=== PATIENT | female | born 1940 | race Caucasian/White ===

== ENCOUNTER → 2021-04-05 10:17 | Outpatient (CLI) | payer MEDICARE, OTHER, SELFPAY ==
[2021-04-05 13:02] LABS: COVID19 -Nasal RAPID Negative (Negative)
== END ==
PROVIDERS: PCP Family Medicine; Visit Provider Nurse Practitioner Family
DX: Z01.812 Encounter for preprocedural laboratory examination (principal); Z20.822 Contact with and (suspected) exposure to COVID-19
CPT/HCPCS: 87635; C9803

== ENCOUNTER 2022-09-11 08:12 | Observation (INO) | payer MEDICARE, OTHER, SELFPAY ==
[2022-09-11] VITALS (47 sets, daily range): BP systolic 166–237; BP diastolic 50–131; PULSE 54–81; RESP 13–41; TEMP 36.5–37.1; O2SAT 92–99; BMI 31.7
--- NOTE | 2022-09-11 08:30 | DI.RAD.S_ITS ---
PROCEDURE: XR CHEST 1V INDICATIONS: chest pain TECHNIQUE: One view of the chest was acquired. COMPARISON: [facility], , CHEST 1 VIEW, 03/07/2016, 10:41. FINDINGS: Surgical changes and devices: Left chest wall pacemaker leads are seen projecting in the region of right atrium and right ventricle. Lungs and pleura: Lungs are clear. No pleural effusions or pneumothorax. Mediastinum: Mediastinal contours appear normal. Heart size is enlarged. Bones and chest wall: No suspicious bony lesions. Overlying soft tissues appear unremarkable. IMPRESSION: No acute cardiopulmonary pathology. Dictated by: Jeevan Christopher M.D. on 09/11/2022 at 8:46 Approved by: Jeevan Christopher M.D. on 09/11/2022 at 8:46
[2022-09-11 08:39] LABS: INR 1.3 (0.9-1.3); Prothrombin Time 14.8 SECONDS (10.1-12.7)
[2022-09-11 08:42] LABS: PTT Partial Thromboplastin Tim 35 SECONDS (26-36)
[2022-09-11 08:43] LABS: Add Manual Diff / Slide Review NO; Basophils Absolute Auto 100 /uL (0-100); Basophils Percent Auto 1.1 % (0-2); Eosinophils Absolute Auto 200 /uL (0-450); Eosinophils Percent Auto 2.4 % (2-4); Hematocrit 42.9 % (36-46); Lymphocytes Absolute Auto 1100 /uL (1100-4500); Lymphocytes Percent Auto 13.9 % (25-40); Mean Corpuscular HGB Conc 32.8 % (30-36); Mean Corpuscular Hemoglobin 29.1 PG (26-34); Mean Corpuscular Volume 88.8 fL (80-100); Monocytes Absolute Auto 1100 /uL (0-900); Monocytes Percent Auto 14.3 % (3-14); Neutrophils Absolute Auto 5300 /uL (1500-7000); Neutrophils Percent Auto 68.3 % (50-75); Platelet Count 160 X10^3/uL (150-400); Red Blood Cell Count 4.83 X10^6/uL (4.0-5.2); Red Cell Distribution Width 14.3 % (11.6-14.8); White Blood Cell Count 7.8 X10^3/uL (4.5-11.0)
[2022-09-11 08:44] LABS: Alanine Aminotransferase 47 IU/L (<35); Albumin 3.9 g/dL (3.5-5.0); Albumin Globulin Ratio 1.3 (1.0-2.8); Alkaline Phosphatase 93 U/L (38-126); Aspartate Aminotransferase 70 IU/L (14-36); BUN Creatinine Ratio 23.8 (6-22); Bilirubin Total 1.6 mg/dL (0.2-1.3); Blood Urea Nitrogen 15 mg/dL (7-17); Calcium 9.3 mg/dL (8.4-10.2); Carbon Dioxide 26 mmol/L (22-32); Chloride 103 mmol/L (98-107); Creatine Kinase 35 U/L (30-135); Estimated Glomerular Filt Rate > 60 mL/min (>60); Globulin 3.1 g/dL (1.7-4.1); Glucose 146 mg/dL (80-110); HEMOLYSIS < 15 (0-50); Lipase 54 U/L (23-300); Magnesium 1.9 mg/dL (1.6-2.3); Potassium 3.7 mmol/L (3.4-5.1); Sodium 138 mmol/L (137-145)
--- NOTE | 2022-09-11 08:53 | ED_ITS ---
HPI - Chest Pain General Chief Complaint: Chest Pain Stated Complaint: Chest pain, paced Time Seen by Provider: 09/11/22 08:38 Source: patient, RN notes reviewed and old records reviewed Mode of arrival: EMS Limitations: no limitations History of Present Illness HPI narrative: This is an 82-year-old female on Eliquis with history of coronary artery disease, cardiac stents and pacemaker placed in 2015, hyperparathyroidism, hypertension, hypothyroidism, prior kidney stones and pseudogout. Patient presents with complaint of 2 episodes the 1st 1 being on Monday and then again today on Monday of left-sided abdominal pain that then radiated up to her chest, down in her belly and towards her back. She states the episode on Monday was not as intense but she felt lightheaded she did have any syncope it subside a fter about 20 minutes and belching seemed to be helpful. Patient states she did not feel any more short of breath with either episode. She states this morning when she got up she had the same area left-sided belly that radiates towards her back up to her chest farther down into her belly. It does not go down her leg. Patient does not think it goes in her arm but she states she really hurt ever ywhere it was more intense today it lasted about an hour. She was nauseated but no vomiting she states felt dizzy and sweaty. She states she is been constipated but had a loose stool on Monday when she would an episode of loose stool today. No black or blood. No dysuria urgency or frequency. No fevers or chills. She states no new changes with breathing or increased shortness of breath. No cold cough or congestion. She is on Synthroid, losartan, amlodipine, Eliquis, estradiol and ofloxacin eyedrops. She notes she is had issues and had cardiac stents placed in 2015 and 6 weeks later pacemaker placed. Patient states at that time her pain was in her back. She has had kidney stones she is got history hyperparathyroidism and had parathyroid removal in 2020 but still has some issues, pseudogout. She is also had cholecystectomy, hysterectomy and pelvic floor surgery. She states she had a CT of her chest abdomen pelvis and was told that there was a button hole hernia by her primary care. Patient follows with Dr. Combs nurse or biometrics head, Dr. Quispe for Urology, Dr. Walden at [facility] for cardiology and Dr. Al [facility] for primary care. She is allergic to beta-blockers, sulfa, hydralazine and triamcinolone. Related Data Home Medications Medication Instructions Recorded Confirmed amlodipine 2.5 mg tablet 2.5 mg PO DAILY 06/16/21 09/11/22 estradiol 1 dose vaginal 4XW 06/16/21 09/11/22 levothyroxine 50 mcg capsule 50 mcg PO DAILY 06/16/21 09/11/22 losartan 100 mg tablet 100 mg PO DAILY 06/16/21 09/11/22 apixaban 2.5 mg tablet (Eliquis) 2.5 mg PO BID 09/11/22 09/11/22 Allergies Allergy/AdvReac Type Severity Reaction Status Date / Time sulfamethoxazole Allergy Mild Verified 11/11/21 07:59 [From ] triamcinolone [TRIAMCINOLONE] Allergy Mild Verified 11/11/21 07:59 trimethoprim [From SEPTRA] Allergy Mild Verified 11/11/21 07:59 Beta-Blockers AdvReac Severe Difficulty Verified 11/11/21 07:59 (Beta-Adrenergic Bloc Breathing hydralazine AdvReac Headache Verified 11/11/21 07:59 Review of Systems Review of Systems ROS Unobtainable: All systems reviewed & are unremarkable except as noted in HPI and below Patient History Medical History History of asthma History of heart attack History of hypothyroidism History of nephrolithiasis History of UTI Hx of cardiac pacemaker Hx of coronary artery disease Hx of essential hypertension Hx of gastroesophageal reflux (GERD) Hx of ovarian cancer Postmenopausal atrophic vaginitis Surgical History History of coronary artery stent placement History of liver biopsy Hx of abdominal hysterectomy Hx of appendectomy Hx of section Hx of cholecystectomy Hx of pelvic surgery Hx of tubal ligation Family History Mother CVA (cerebral vascular accident) FH: heart attack Migraine Social History household members: none Smoking Status: Former smoker Tobacco: How many years used: 9 alcohol intake: never caffeine: No Type(s) of exercise: other frequency: 1-2 times per week Smoking Status: Former smoker Exam Narrative Exam Narrative: GENERAL: Alert and oriented x three, female in mild distress. HEENT: Head normocephalic, atraumatic, EOMI, pupils reactive, face symmetric, moist mucous membranes NECK: Supple, full range of motion CARDIOVASCULAR: Regular rate and rhythm without murmurs, rubs or gallops. No JVD. No edema. RESPIRATORY: Breath sounds equal bilaterally, no wheezes rales or rhonchi. No tachypnea or accessory muscle use. ABDOMEN: Soft, patient has mild generalized tenderness, patient is quite tender in the left upper quadrant. Normoactive bowel sounds all 4 quadrants. No guard ing or rebound, rigidity, no mass. : No CVA tenderness EXTREMITIES: Normal range of motion, no clubbing or edema. Neurovascularly intact NEUROLOGICAL: Cranial nerves II through XII grossly intact. Moving all extremities SKIN: Warm, dry, no petechiae, no rashes or lesions. Initial Vital Signs Initial Vital Signs: Vital Signs Pulse Rate 72 09/11/22 08:22 Respiratory Rate 24 09/11/22 08:22 Pulse Oximetry 98 09/11/22 08:22 Course Orders Ordered: ED Orders 09/11/22 10:42 Trop I [Troponin I] Stat 09/11/22 10:47 EKG-12 Lead Routine Acetaminophen (Acetaminophen 325 Mg Tablet) 650 mg PO Q6H PRN PRN Reason: Fever/Mild Pain (1-3) Amlodipine Besylate (Amlodipine 5 Mg Tablet) 5 mg PO DAILY BREANNA Apixaban (Apixaban 5 Mg Tablet) 2.5 mg PO BID BREANNA Levothyroxine Sodium (Levothyroxine 50 Mcg Tablet) 50 mcg PO DAILY@0600 BREANNA Losartan Potassium (Losartan 50 Mg Tablet) 100 mg PO DAILY BREANNA Naloxone HCl (Naloxone 0.4 Mg/Ml Vial) 0.2 mg IV Q2MIN PRN PRN Reason: Opiate Reversal Ondansetron HCl (Ondansetron 4 Mg/2 Ml Inj) 4 mg IV Q8HR PRN PRN Reason: Nausea And Vomiting Discontinued Medications Amlodipine Besylate (Amlodipine 5 Mg Tablet) 2.5 mg PO NOW ONE Stop: 09/11/22 17:51 Last Admin: 09/11/22 18:25 Dose: 2.5 mg Documented By: BV Enoxaparin Sodium (Enoxaparin 40 Mg/0.4 Ml Syringe) 40 mg SUBCUT DAILY BREANNA Sodium Chloride (Normal Saline 0.9%) 1,000 mls @ 150 mls/hr IV CONT BREANNA Last Admin: 09/11/22 10:03 Dose: 150 mls/hr Documented By: NR Nitroglycerin (Nitroglycerin 0.4 Mg Sl Tab) 0.4 mg SL [id number] PRN PRN Reason: Chest Pain Last Admin: 09/11/22 12:37 Dose: 0.4 mg Documented By: Admin: 09/11/22 12:13 Dose: 0.4 mg Documented By: AT Nitroglycerin (Nitroglycerin Oint 1 Inch/Gm Oint...G.) 1 inch TOP NOW ONE Stop: 09/11/22 13:04 Last Admin: 09/11/22 13:44 Dose: 1 inch Documented By: NR Ondansetron HCl (Ondansetron 4 Mg/2 Ml Inj) 4 mg IV NOW ONE Stop: 09/11/22 09:13 Last Admin: 09/11/22 10:12 Dose: 4 mg Documented By: NR Pantoprazole Sodium (Pantoprazole 40 Mg Vial) 80 mg IV NOW ONE Stop: 09/11/22 09:15 Last Admin: 09/11/22 10:03 Dose: 80 mg Documented By: NR Vital Signs Vital signs: Vital Signs - 8 hr 09/11/22 11:00 09/11/22 11:01 09/11/22 11:01 Pulse Rate 60 61 Respiratory Rate 19 30 H Blood Pressure 209/79 H Pulse Oximetry 97 97 09/11/22 11:30 09/11/22 11:31 09/11/22 11:31 Pulse Rate 59 L 63 Respiratory Rate 22 31 H Blood Pressure 208/82 H Pulse Oximetry 97 96 09/11/22 12:13 09/11/22 11:41 09/11/22 11:41 Pulse Rate 65 74 Respiratory Rate 20 Blood Pressure 192/78 H 237/97 H Pulse Oximetry 96 09/11/22 12:00 09/11/22 12:01 09/11/22 12:01 Pulse Rate 54 L 63 Respiratory Rate 22 16 Blood Pressure 211/88 H Pulse Oximetry 98 98 09/11/22 12:12 09/11/22 12:12 02/12/23 12:19 Pulse Rate 62 Respiratory Rate 20 Blood Pressure 192/78 H 173/73 H Pulse Oximetry 98 09/11/22 12:19 09/11/22 12:37 09/11/22 13:44 Pulse Rate 64 65 54 L Respiratory Rate 17 Blood Pressure 225/85 H 231/91 H Pulse Oximetry 96 09/11/22 12:30 09/11/22 12:31 09/11/22 12:31 Pulse Rate 54 L 63 Respiratory Rate 31 H 22 Blood Pressure 180/74 H Pulse Oximetry 97 96 09/11/22 12:35 09/11/22 12:35 09/11/22 12:41 Pulse Rate 63 Respiratory Rate 17 Blood Pressure 225/85 H 194/78 H Pulse Oximetry 96 09/11/22 12:41 09/11/22 12:45 09/11/22 12:45 Pulse Rate 67 66 Respiratory Rate 25 H 28 H Blood Pressure 201/81 H Pulse Oximetry 96 96 09/11/22 12:50 09/11/22 12:50 09/11/22 12:55 Pulse Rate 60 Respiratory Rate 28 H Blood Pressure 180/76 H 174/70 H Pulse Oximetry 96 09/11/22 12:55 09/11/22 13:00 09/11/22 13:01 Pulse Rate 58 L 55 L Respiratory Rate 28 H 24 Blood Pressure 193/74 H Pulse Oximetry 96 97 09/11/22 13:01 09/11/22 13:05 09/11/22 13:05 Pulse Rate 57 L 54 L Respiratory Rate 22 16 Blood Pressure 167/72 H Pulse Oximetry 97 96 09/11/22 13:30 09/11/22 13:31 09/11/22 13:31 Pulse Rate 67 69 Respiratory Rate 34 H 36 H Blood Pressure 231/91 H Pulse Oximetry 97 97 09/11/22 14:00 09/11/22 14:00 09/11/22 14:30 Pulse Rate 55 L 57 L Respiratory Rate 17 13 Blood Pressure 184/131 H Pulse Oximetry 97 96 09/11/22 14:31 09/11/22 14:31 09/11/22 15:00 Pulse Rate 63 70 Respiratory Rate 17 15 Blood Pressure 166/72 H Pulse Oximetry 96 96 09/11/22 15:01 09/11/22 15:01 Pulse Rate 72 Respiratory Rate 18 Blood Pressure 218/84 H Pulse Oximetry 96 MDM - Chest Pain Lab Data 09/11/22 08:24 09/11/22 08:24 Labs: Lab Results 09/11/22 09/11/22 09/11/22 Range/Units 08:15 08:24 08:24 WBC 7.8 (4.5-11.0) X10^3/uL RBC 4.83 (4.0-5.2) X10^6/uL Hgb 14.0 (12.0-16.0) g/dL Hct 42.9 (36-46) % MCV 88.8 (80-100) fL MCH 29.1 (26-34) PG MCHC 32.8 (30-36) % RDW 14.3 (11.6-14.8) % Plt Count 160 (150-400) X10^3/uL Neut % (Auto) 68.3 (50-75) % Lymph % (Auto) 13.9 L (25-40) % [place] % (Auto) 14.3 H (3-14) % Eos % (Auto) 2.4 (2-4) % Baso % (Auto) 1.1 (0-2) % Neut # (Auto) 5300 (6144-0502) /uL Lymph # (Auto) 1100 (9272-0152) /uL [place] # (Auto) 1100 H (0-900) /uL Eos # (Auto) 200 (0-450) /uL Baso # (Auto) 100 (0-100) /uL PT 14.8 H (10.1-12.7) SECONDS INR 1.3 (0.9-1.3) APTT 35 (26-36) SECONDS Sodium (137-145) mmol/L Potassium (3.4-5.1) mmol/L Chloride (98-107) mmol/L Carbon Dioxide (22-32) mmol/L BUN (7-17) mg/dL Creatinine (0.52-1.04) mg/dL Estimated GFR (>60) mL/min BUN/Creatinine Ratio (6-22) Glucose (80-110) mg/dL Lactate (0.7-2.1) mmol/L Calcium (8.4-10.2) mg/dL Magnesium (1.6-2.3) mg/dL Total Bilirubin (0.2-1.3) mg/dL AST (14-36) IU/L ALT (<35) IU/L Alkaline Phosphatase (38-126) U/L Total Creatine Kinase (30-135) U/L CK-MB (CK-2) CK-MB (CK-2) Rel Index Troponin I (0.01-0.034) ng/mL Total Protein (6.3-8.2) g/dL Albumin (3.5-5.0) g/dL Globulin (1.7-4.1) g/dL Albumin/Globulin Ratio (1.0-2.8) Lipase (23-300) U/L Urine RBC None seen (0-5/HPF) Urine WBC 1-5/hpf (0-5/HPF) Ur Squamous Epith Cells 0-1 /hpf (0-5/HPF) Urine Bacteria None seen (None) Ur Culture Indicated? Cult not indicated 09/11/22 09/11/22 09/11/22 Range/Units 08:24 08:24 10:42 WBC (4.5-11.0) X10^3/uL RBC (4.0-5.2) X10^6/uL Hgb (12.0-16.0) g/dL Hct (36-46) % MCV (80-100) fL MCH (26-34) PG MCHC (30-36) % RDW (11.6-14.8) % Plt Count (150-400) X10^3/uL Neut % (Auto) (50-75) % Lymph % (Auto) (25-40) % [place] % (Auto) (3-14) % Eos % (Auto) (2-4) % Baso % (Auto) (0-2) % Neut # (Auto) (4387-5421) /uL Lymph # (Auto) (9184-6577) /uL [place] # (Auto) (0-900) /uL Eos # (Auto) (0-450) /uL Baso # (Auto) (0-100) /uL PT (10.1-12.7) SECONDS INR (0.9-1.3) APTT (26-36) SECONDS Sodium 138 (137-145) mmol/L Potassium 3.7 (3.4-5.1) mmol/L Chloride 103 (98-107) mmol/L Carbon Dioxide 26 (22-32) mmol/L BUN 15 (7-17) mg/dL Creatinine 0.63 (0.52-1.04) mg/dL Estimated GFR > 60 (>60) mL/min BUN/Creatinine Ratio 23.8 H (6-22) Glucose 146 H (80-110) mg/dL Lactate 1.1 (0.7-2.1) mmol/L Calcium 9.3 (8.4-10.2) mg/dL Magnesium 1.9 (1.6-2.3) mg/dL Total Bilirubin 1.6 H (0.2-1.3) mg/dL AST 70 H (14-36) IU/L ALT 47 H (<35) IU/L Alkaline Phosphatase 93 (38-126) U/L Total Creatine Kinase 35 (30-135) U/L CK-MB (CK-2) TNP CK-MB (CK-2) Rel Index TNP Troponin I < 0.012 < 0.012 (0.01-0.034) ng/mL Total Protein 7.0 (6.3-8.2) g/dL Albumin 3.9 (3.5-5.0) g/dL Globulin 3.1 (1.7-4.1) g/dL Albumin/Globulin Ratio 1.3 (1.0-2.8) Lipase 54 (23-300) U/L Urine RBC (0-5/HPF) Urine WBC (0-5/HPF) Ur Squamous Epith Cells (0-5/HPF) Urine Bacteria (None) Ur Culture Indicated? Urine Dip Bedside Urine Glucose Negative Bedside Urine Bilirubin - Negative Bedside Urine Ketone +++ 80 Urine Specific Ramsay 1.030 Bedside Urine Occult Blood - Negative Bedside Urine pH 6.0 Bedside Urine Protein + 30 Bedside Urine Urobilinogen +/- 1mg Bedside Urine Nitrite - Negative Bedside Urine Leukocytes - Negative Esterase Imaging Data CT angio chest/abd/pelvis: Radiologist's Impression: [address] [address] [address] Scan Report Signed Patient: Yoselin Sanders MR#: [id number] : 1940 Acct:[id number] Age/Sex: 82 / F Date of Service: 09/11/22 Loc: ED Accession Number: [id number] ?? Procedure: CT angio chest abdomen pelvis Ordering Provider: Tanya Osullivan D.O. PROCEDURE:? CT ANGIO CHEST ABDOMEN PELVIS ? INDICATIONS:? left sided abd pain, radiates to chest and down ? TECHNIQUE:? Precontrast 5 mm thick sections acquired from the lung apices to the iliac crests.? After the administration of intravenous contrast, 2.5 mm thick sections again acquired from the lung apices to the iliac crests.? Maximum intensity projection (MIP) oblique sag ittal and coronal reformats were then acquired.? For radiation dose reduction, the following was used:? automated exposure control.? ? COMPARISON:? [facility], CT, CT ANGIO CHEST ABDOMEN PELVIS, 05/22/2022, 8:24. ? FINDINGS:? Image quality:? Excellent.? ? AORTA:? Thoracic and abdominal aorta are normal in size and show normal contrast enhancement.? No aortic aneurysm or dissection.? [id number] atherosclerotic disease is seen in descending thoracic aorta and abdominal aorta. ? CHEST:? Lungs and pleura:? No acute airspace opacities.? Dependent atelectasis are seen at posterior aspect of bilateral lung bases.? No pleural effusions or pneumothorax.? Central and peripheral airways are patent and normal in caliber.? ? Mediastinum:? Heart size is enlarged.? No pericardial effusion.? Pacemaker leads are seen in right atrium and right ventricle.? Moderate atherosclerotic disease throughout coronary vessels are seen.? No mediastinal or hilar adenopathy by size criteria.? Central pulmonary arteries are normal in size.? Esophagus is normal in caliber.? Moderate-sized hiatal hernias.? ? Bones and chest wall:? Left chest wall pacemaker is seen.? No axillary adenopathy by size criteria.? There is nonvisualization of right thyroid lobe and enlarged left thyroid lobe with heterogeneous enhancement and lobulated left thyroid lobe contour.? No suspicious bony lesions.? No vertebral body compression fractures.? ? ? ABDOMEN:? Vasculature:? Celiac trunk and mesenteric arteries are patent.? Renal arteries are also patent.? ? Solid organs:? Liver is normal in size and enhancement.? Gallbladder is surgically absent.? There is no intrahepatic biliary ductal dilatation.? Marked dilatation of common hepatic duct and common bile duct is seen and measures up to 2.9 cm in diameter unchanged from prior study.? No intraluminal filling defect is seen.? Pancreas enhances normally.? Spleen is normal in size and enhancement.? No adrenal nodules.? Both kidneys are normal in size and enhancement, without hydronephrosis.? Bilateral peripelvic renal cysts are again seen. ? Peritoneum and bowel:? No free fluid or air.? Bowel loops are normal in caliber and wall thickness.? ? Nodes and vessels:? No retroperitoneal or mesenteric adenopathy by size criteria.? Inferior vena cava is normal in morphology.? ? Miscellaneous:? No ventral hernias.? ? ? PELVIS:? Genitourinary:? Bladder wall thickness is normal.? ? Miscellaneous:? No inguinal hernias or adenopathy.? No ventral hernias.? There is prior hysterectomy. ? Bones:? No suspicious bony lesions.? No vertebral body compression fractures.? Degenerative disc disease throughout thoracic and lumbar spine is noted. ? ? IMPRESSION:? 1. No aortic aneurysm or dissection.? Pnzk-mk-[id number] atherosclerotic disease in abdominal and descending thoracic aorta.? No hemodynamically significant stenosis is seen in main branches of thoracic or abdominal aorta. ? 2. Dependent atelectasis in posterior aspect of bilateral lower lung vance.? No focal infiltrate, pleural effusion or pneumothorax. ? 3. Normal size of pulmonary artery.? No evidence of pulmonary emboli. ? 4. Cardiomegaly, no pericardial effusion.? No mediastinal or hilar lymphad enopathy. ? 5. No acute inflammatory process is seen in abdomen or pelvis. ? 6. Chronic dilatation of extrahepatic ducts.? No gross choledocholithiasis. ? 7. Other findings as described above, not significantly changed from prior studies.? Dictated by: Jeevan Christopher M.D. on 09/11/2022 at 10:39 ? ? Approved by: Jeevan Christopher M.D. on 09/11/2022 at 10:45?? ECG Data Attestation: I personally reviewed and interpreted this ECG as follows: Interpretation: Sinus rhythm first-degree AV block. Incomplete right bundle, LVH. Rate of 63 WA 264, QRS of 94 and QTC of 384. Patient is not paste here in the emergency but appears to be paced with EMS on their rhythm strip. Their strip shows rate of 63 with a QRS 140 and WA of 90, QT 461. Patient has prior EKG from 03/07/2016 which showed frequent PVCs in a bigeminal pattern LVH and Q-waves in lead V3 V4. Which are present today as well. EKG 2. Sinus rhythm first-degree AV block left axis deviation LVH. Rate of 70 2p are 262, QRS of 100 QTC 429. Patient has Q-waves in 2 3 AVF you will not be too does not have significant changes in ST segments although has inversion when aVL. MDM Narrative Medical decision making narrative: This is an 82-year-old female who presents with complaint of left-sided abdominal pain she is had 2 episodes throughout the weekend, radiates up to her chest and to her back. Patient does have a history of hypertension coronary disease has stents EKG does not show clear acute changes for LA, troponin is negative CBC and CMP do show glucose of 146 and a bilirubin of 1.6 with AST ALT is 70 in 47 normal lipase patient has had cholecystectomy. She is much more tender on the left upper quadrant on examination so CT abdomen pelvis but also including chest and angio form obtained to evaluate for intra-abdominal process, vascular process and will repeat troponin at 2:00 a.m. annette along with EKG. Patient defers pain medications but is nauseated will give Zofran, dental fluids and reassess. On recheck patient's pain has not resolved. Second troponin EKG are negative. Patient has become increasingly hypertensive she did receive 2 nitro sublingual made some to minimal change. Patient states pain is 4/10 was maximum 8/10 earlier. Patient has not found any clear cause could possibly be secondary to pain from ulcer or other changes but based on her cardiac history I still have some concern we have with 2- troponins without dynamic EKG changes secondary hypertension. Discussed with Dr. Lord patient has received her at afternoon amlodipine home dose. We will try nitro paste if this is adequate plan for admission to the floor if still quite hypertensive after 1/2 hour hour of evaluation will start drip for blood pressure control and admit to ICU. Dr. Martins and was re-contacted patient has been 160s after nitro paste for about an hour he accepts. Discharge Plan Departure Patient Disposition: Admitted as Observation Clinical Impression: Atypical chest pain, Hypertensive urgency Admit Date/Time: 09/11/22 15:08 Admit Provider: Lee Lord
[2022-09-11 08:55] LABS: Bacteria Urine None Seen; Culture Indicated Urine Cult Not Indicated; RBC Urine None Seen (0-5/HPF); Squamous Epithelial Cell Urine 0-1 /HPF (0-5/HPF); WBC Urine 1-5/HPF (0-5/HPF)
[2022-09-11 08:56] LABS: Troponin I < 0.012 ng/mL (0.01-0.034)
--- NOTE | 2022-09-11 09:12 | DI.CT.S_ITS ---
PROCEDURE: CT ANGIO CHEST ABDOMEN PELVIS INDICATIONS: left sided abd pain, radiates to chest and down TECHNIQUE: Precontrast 5 mm thick sections acquired from the lung apices to the iliac crests. After the administration of intravenous contrast, 2.5 mm thick sections again acquired from the lung apices to the iliac crests. Maximum intensity projection (MIP) oblique sagittal and coronal reformats were then acquired. For radiation dose reduction, the following was used: automated exposure control. COMPARISON: [facility], CT, CT ANGIO CHEST ABDOMEN PELVIS, 05/22/2022, 8:24. FINDINGS: Image quality: Excellent. AORTA: Thoracic and abdominal aorta are normal in size and show normal contrast enhancement. No aortic aneurysm or dissection. Attl-yf-tnyzhhya atherosclerotic disease is seen in descending thoracic aorta and abdominal aorta. CHEST: Lungs and pleura: No acute airspace opacities. Dependent atelectasis are seen at posterior aspect of bilateral lung bases. No pleural effusions or pneumothorax. Central and peripheral airways are patent and normal in caliber. Mediastinum: Heart size is enlarged. No pericardial effusion. Pacemaker leads are seen in right atrium and right ventricle. Moderate atherosclerotic disease throughout coronary vessels are seen. No mediastinal or hilar adenopathy by size criteria. Central pulmonary arteries are normal in size. Esophagus is normal in caliber. Moderate-sized hiatal hernias. Bones and chest wall: Left chest wall pacemaker is seen. No axillary adenopathy by size criteria. There is nonvisualization of right thyroid lobe and enlarged left thyroid lobe with heterogeneous enhancement and lobulated left thyroid lobe contour. No suspicious bony lesions. No vertebral body compression fractures. ABDOMEN: Vasculature: Celiac trunk and mesenteric arteries are patent. Renal arteries are also patent. Solid organs: Liver is normal in size and enhancement. Gallbladder is surgically absent. There is no intrahepatic biliary ductal dilatation. Marked dilatation of common hepatic duct and common bile duct is seen and measures up to 2.9 cm in diameter unchanged from prior study. No intraluminal filling defect is seen. Pancreas enhances normally. Spleen is normal in size and enhancement. No adrenal nodules. Both kidneys are normal in size and enhancement, without hydronephrosis. Bilateral peripelvic renal cysts are again seen. Peritoneum and bowel: No free fluid or air. Bowel loops are normal in caliber and wall thickness. Nodes and vessels: No retroperitoneal or mesenteric adenopathy by size criteria. Inferior vena cava is normal in morphology. Miscellaneous: No ventral hernias. PELVIS: Genitourinary: Bladder wall thickness is normal. Miscellaneous: No inguinal hernias or adenopathy. No ventral hernias. There is prior hysterectomy. Bones: No suspicious bony lesions. No vertebral body compression fractures. Degenerative disc disease throughout thoracic and lumbar spine is noted. IMPRESSION: 1. No aortic aneurysm or dissection. Akcj-tb-[id number] atherosclerotic disease in abdominal and descending thoracic aorta. No hemodynamically significant stenosis is seen in main branches of thoracic or abdominal aorta. 2. Dependent atelectasis in posterior aspect of bilateral lower lung vance. No focal infiltrate, pleural effusion or pneumothorax. 3. Normal size of pulmonary artery. No evidence of pulmonary emboli. 4. Cardiomegaly, no pericardial effusion. No mediastinal or hilar lymphadenopathy. 5. No acute inflammatory process is seen in abdomen or pelvis. 6. Chronic dilatation of extrahepatic ducts. No gross choledocholithiasis. 7. Other findings as described above, not significantly changed from prior studies. Dictated by: Jeevan Christopher M.D. on 09/11/2022 at 10:39 Approved by: Jeevan Christopher M.D. on 09/11/2022 at 10:45
[2022-09-11 09:30] LABS: Lactate (Lactic Acid) 1.1 mmol/L (0.7-2.1)
[2022-09-11] MEDS: PANTOPRAZOLE 40 MG VIAL 80 MG IV (10:03)
[2022-09-11] MEDS: SODIUM CHLORIDE 0.9% 1,000 ML 150 ML IV (10:03)
[2022-09-11] MEDS: ONDANSETRON 4 MG/2 ML INJ IV (10:12)
--- NOTE | 2022-09-11 10:13 | PC.NURSE ---
went into patient room to give medications. pt agreed to take fluids and protonix. but stated she was not currently feeling nausea and did not want the zofran. pt is worried that about taking medications given all her allergies to medications. pt suddenly felt the need to go to the bathroom, pt states she has urgency very bad these days and is unable to hold it sometimes. grabbeed commode, pt up to commode with no assistance, upon getting up pt suddenly had increase in pain, and nausea. points to substernal area and then says it is radiating up to pacemaker. pt then agreed to have zofran for nausea. provider notified of event
[2022-09-11 11:20] LABS: Troponin I < 0.012 ng/mL (0.01-0.034)
[2022-09-11] MEDS: NITROGLYCERIN 0.4 MG SL TAB SL ×2 (12:13→12:37)
[2022-09-11] MEDS: NITROGLYCERIN OINT 1 INCH/GM OINT...G. TOP (13:44)
--- NOTE | 2022-09-11 13:45 | PC.NURSE ---
per provider, pt took home medications amlodipine 2.5mg and 400IU of vitamin D.
--- NOTE | 2022-09-11 16:21 | PC.NURSE ---
admit to floor from ED: dx: chest pain alert,oriented. voices needs. SBA for mobility/transfers. reports pain is currently 4/10 under her left 5th rib, accompanied w/ radiating pain across left chest. this comes and goes.. currently has nitro paste on sternum. had 2 doses SL nitro in ED. patient reports mostly hunger pains and is looking forward to eating dinner. ice water + crackers provided. tele applied: NSR. oriented to room, bathroom and call light. call light w/in reach. patients chart says FULL code, but patient states she is DNR. notified of this.
[2022-09-11 17:26] LABS: Troponin I < 0.012 ng/mL (0.01-0.034)
--- NOTE | 2022-09-11 17:51 | DI.ECHO.S_ITS ---
[facility]---------+ [facility] +---------+ : : [address] : [address] : : : : [id number] : : : : Phone: [phone]+ Echocardiogram Report + + :Name: COURTNEY JAFFE Study Date: 09/12/2022 Height: 64 in : :[facility] ReadingLocation: Weight: 185 lb : : Gender: Female BSA: 1.9 m2 : :: 1940 Age: 82 yrs BP: 172/60 mmHg: :Reason For Study: CAD : :Ordering Physician: SURESH, : :LORENZO LYNN Performed By: Dayana Vargas : :Referring: LORENZO PRINCE : + + Interpretation Summary Mild-moderate concentric left ventricular hypertrophy with ejection fraction 65-70%. The left ventricular cavity is small. Diastolic parameters suggest a relaxation abnormality of the left ventricle, consistent with probable normal filling pressures. No significant valvular abnormality. Procedure: A two-dimensional transthoracic echocardiogram with color flow and Doppler was performed. The study quality was technically adequate. There has been no significant change since the previous study. The patient was in sinus rhythm with heart rates between 70-78 bpm during the exam. Left Ventricle: There is mild-moderate concentric left ventricular hypertrophy. The left ventricular cavity is small. The ejection fraction is estimated to be 65-70%. There are no focal wall motion abnormalities. Diastolic parameters suggest a relaxation abnormality of the left ventricle, consistent with probable normal filling pressures. Right Ventricle: The right ventricle is normal in size and function. There is a pacemaker lead in the right ventricle. Atria: The left atrial size is normal. Right atrial size is normal. There is no Doppler evidence for an interatrial shunt. Mitral Valve: The mitral valve is normal in structure and function. There is no mitral regurgitation noted. Aortic Valve: The aortic valve is normal in structure and function. No aortic regurgitation is present. Tricuspid Valve: The tricuspid valve is normal in structure and function. There is a trace or physiologic amount of tricuspid regurgitation. Compared to the prior echo exam, there has been an increase in the severity of pulmonary hypertension. Pulmonic Valve: The pulmonic valve is not well visualized. There is no pulmonic valvular regurgitation. Great Vessels: The ascending aorta is normal in size. The IVC is dilated (diameter is greater than 2.1 cm) yet it collapses greater than 50% with a sniff. This suggests a right atrial pressure of 8 mm Hg. Pericardium/ Pleura There is no pericardial effusion. There is no pleural effusion. MMode/2D Measurements & Calculations LVIDd: 3.7 cm LVOT diam: 1.9 cm LVIDs: 2.5 cm Ao root diam: 2.7 cm FS: 32.4 % asc Aorta Diam: 2.7 cm EPSS: 0.30 cm IVSd: 1.3 cm LVPWd: 1.3 cm LV lucero. diameter/BSA (cm/m^2): 2.0 LV sys. diameter/BSA (cm/m^2): 1.3 LA dimension: 3.2 cm RA long axis: 5.3 cm LA A2 area: 14.2 cm2 RA area: 17.6 cm2 LA A4 area: 20.1 cm2 RA vol: 49.8 ml LA length (vol): 4.5 cm RA : 26.3 ml/m2 LA vol: 53.4 ml LA vol index: 28.2 ml/m2 RVD1 (basal): 3.7 cm LVLs ap4: 5.8 cm LVLd ap2: 6.7 cm TAPSE_phl: 3.0 cm LVLs ap2: 5.0 cm Doppler Measurements & Calculations Ao V2 max: 133.0 cm/sec LVOT Max Donell: 80.9 cm/sec Ao V2 mean: 103.0 cm/sec LV V1 max P.6 mmHg Ao max P.0 mmHg LV V1 VTI: 17.6 cm Ao mean P.0 mmHg CHAIM(I,D): 1.7 cm2 Ao V2 VTI: 28.6 cm CHAIM(V,D): 1.7 cm2 sev ratio: 0.62 CAHIM indexed to BSA (cm^2/m^2): 0.92 MV E max donell: 97.3 cm/sec TR max donell: 376.0 cm/sec MV A max donell: 119.0 cm/sec TR max P.6 mmHg MV E/A: 0.82 PA V2 max: 77.6 cm/sec Med Peak E' Donell: 4.3 cm/sec PA V2 mean: 57.5 cm/sec E/E' med: 22.9 PA mean P.0 mmHg Lat Peak E' Donell: 6.9 cm/sec E/E' lat: 14.2 E/e' average: 18.5 MV dec time: 0.25 sec MVA(VTI): 1.9 cm2 MV V2 mean: 73.1 cm/sec SV(LVOT): 49.9 ml MV mean P.0 mmHg MV V2 VTI: 26.2 cm AV VR_phl: 0.61 MV P1/2t-pr_phl: 73.0 msec CHAIM(VTI)/BSA_phl: 0.93 Electronically signed by: Dillan Fields on Reading Physician:09/12/2022 09:37 AM
--- NOTE | 2022-09-11 17:54 | PM.HP.1 ---
History of Present Illness History of Present Illness Date Patient Seen: 09/11/22 Time Patient Seen: 17:54 Chief complaint: Chest pain, paced Narrative: This is an 82 year old female with PMH of CAD, afib with PPM, hyperparathyroidism, HTN, hypothyroid, pancreatic insufficiency on pancreatic enzymes? who presents with 2 episodes of adbominal pain. First happened monday, it felt band like about 30 minutes after a meal, was associated with weakness, fatigue, diaphoresis, and dizziness. The pain was burning in nature, radiated into her chest and left arm as well as her back. She also had a couple of loose stools. Eventually she had a large burp, with improvement in her pain. She had recurrence of this pain early this morning and came in to the ER for further evaluation. She does not have a gallbladder. She denies palpitations, dysuria or urinary frequency. She denies fever or chills. She denies recent illness. In the emergency room, patient was markedly hypertensive, but the remainder of her vitals were unremarkable. EKG showed sinus rhythm with 1st degree AV block. CXR and CTA chest abdomen pelvis was unremarkable. Lab evaluation was unremarkable except for mild elevations in AST/ALT and tbili. Lipase was normal. Troponin was negative. She was admitted for further evaluation of her pain with some concern for atypical presentation of chest pain. Patient History Medical History History of asthma History of heart attack History of hypothyroidism History of nephrolithiasis History of UTI Hx of cardiac pacemaker Hx of coronary artery disease Hx of essential hypertension Hx of gastroesophageal reflux (GERD) Hx of ovarian cancer Postmenopausal atrophic vaginitis Surgical History History of coronary artery stent placement History of liver biopsy Hx of abdominal hysterectomy Hx of appendectomy Hx of section Hx of cholecystectomy Hx of pelvic surgery Hx of tubal ligation Family & Social History Family History Mother CVA (cerebral vascular accident) FH: heart attack Migraine Social History: household members none Prior Living Arrangements [facility] Facility Safety & Behavioral: Feels Safe in Current Yes Environment Been Physically Hurt or No Threatened By a Person Tobacco & Substance use: Smoking Status Former smoker alcohol intake never Substance Use Type does not use Meds Home Medications and Allergies Home Medications Medication Instructions Recorded Confirmed Type amlodipine 2.5 mg tablet 2.5 mg PO DAILY 06/16/21 09/11/22 History estradiol 1 dose vaginal 4XW 06/16/21 09/11/22 History levothyroxine 50 mcg capsule 50 mcg PO DAILY 06/16/21 09/11/22 History losartan 100 mg tablet 100 mg PO DAILY 06/16/21 09/11/22 History apixaban 2.5 mg tablet (Eliquis) 2.5 mg PO BID 09/11/22 09/11/22 History Allergies Allergy/AdvReac Type Severity Reaction Status Date / Time sulfamethoxazole Allergy Mild Verified 11/11/21 07:59 [From ] triamcinolone [TRIAMCINOLONE] Allergy Mild Verified 11/11/21 07:59 trimethoprim [From ] Allergy Mild Verified 11/11/21 07:59 Beta-Blockers AdvReac Severe Difficulty Verified 11/11/21 07:59 (Beta-Adrenergic Bloc Breathing hydralazine AdvReac Headache Verified 11/11/21 07:59 Review of Systems Review of Systems Narrative: All other systems reviewed with the patient and are negative unless otherwise stated. Exam Vital Signs (past 8 hours): - 09/11/22 10:00 09/11/22 10:00 09/11/22 10:30 Temperature Pulse Rate 65 61 Respiratory Rate 28 H 13 Blood Pressure 203/78 H Pulse Oximetry 98 97 Oxygen Delivery Method Oxygen Flow Rate 09/11/22 10:31 09/11/22 10:31 09/11/22 11:00 Temperature Pulse Rate 65 60 Respiratory Rate 16 19 Blood Pressure 198/80 H Pulse Oximetry 96 97 Oxygen Delivery Method Oxygen Flow Rate 09/11/22 11:01 09/11/22 11:01 09/11/22 11:30 Temperature Pulse Rate 61 59 L Respiratory Rate 30 H 22 Blood Pressure 209/79 H Pulse Oximetry 97 97 Oxygen Delivery Method Oxygen Flow Rate 09/11/22 11:31 09/11/22 11:31 09/11/22 12:13 Temperature Pulse Rate 63 65 Respiratory Rate 31 H Blood Pressure 208/82 H 192/78 H Pulse Oximetry 96 Oxygen Delivery Method Oxygen Flow Rate 09/11/22 11:41 09/11/22 11:41 09/11/22 12:00 Temperature Pulse Rate 74 54 L Respiratory Rate 20 22 Blood Pressure 237/97 H Pulse Oximetry 96 98 Oxygen Delivery Method Oxygen Flow Rate 09/11/22 12:01 09/11/22 12:01 09/11/22 12:12 Temperature Pulse Rate 63 Respiratory Rate 16 Blood Pressure 211/88 H 192/78 H Pulse Oximetry 98 Oxygen Delivery Method Oxygen Flow Rate 09/11/22 12:12 09/11/22 12:19 09/11/22 12:19 Temperature Pulse Rate 62 64 Respiratory Rate 20 17 Blood Pressure 173/73 H Pulse Oximetry 98 96 Oxygen Delivery Method Oxygen Flow Rate 09/11/22 12:37 09/11/22 13:44 09/11/22 12:30 Temperature Pulse Rate 65 54 L 54 L Respiratory Rate 31 H Blood Pressure 225/85 H 231/91 H Pulse Oximetry 97 Oxygen Delivery Method Oxygen Flow Rate 09/11/22 12:31 09/11/22 12:31 09/11/22 12:35 Temperature Pulse Rate 63 Respiratory Rate 22 Blood Pressure 180/74 H 225/85 H Pulse Oximetry 96 Oxygen Delivery Method Oxygen Flow Rate 09/11/22 12:35 09/11/22 12:41 09/11/22 12:41 Temperature Pulse Rate 63 67 Respiratory Rate 17 25 H Blood Pressure 194/78 H Pulse Oximetry 96 96 Oxygen Delivery Method Oxygen Flow Rate 09/11/22 12:45 09/11/22 12:45 09/11/22 12:50 Temperature Pulse Rate 66 60 Respiratory Rate 28 H 28 H Blood Pressure 201/81 H Pulse Oximetry 96 96 Oxygen Delivery Method Oxygen Flow Rate 09/11/22 12:50 09/11/22 12:55 09/11/22 12:55 Temperature Pulse Rate 58 L Respiratory Rate 28 H Blood Pressure 180/76 H 174/70 H Pulse Oximetry 96 Oxygen Delivery Method Oxygen Flow Rate 09/11/22 13:00 09/11/22 13:01 09/11/22 13:01 Temperature Pulse Rate 55 L 57 L Respiratory Rate 24 22 Blood Pressure 193/74 H Pulse Oximetry 97 97 Oxygen Delivery Method Oxygen Flow Rate 09/11/22 13:05 09/11/22 13:05 09/11/22 13:30 Temperature Pulse Rate 54 L 67 Respiratory Rate 16 34 H Blood Pressure 167/72 H Pulse Oximetry 96 97 Oxygen Delivery Method Oxygen Flow Rate 09/11/22 13:31 09/11/22 13:31 09/11/22 14:00 Temperature Pulse Rate 69 Respiratory Rate 36 H Blood Pressure 231/91 H 184/131 H Pulse Oximetry 97 Oxygen Delivery Method Oxygen Flow Rate 09/11/22 14:00 09/11/22 14:30 09/11/22 14:31 Temperature Pulse Rate 55 L 57 L 63 Respiratory Rate 17 13 17 Blood Pressure Pulse Oximetry 97 96 96 Oxygen Delivery Method Oxygen Flow Rate 09/11/22 14:31 09/11/22 15:00 09/11/22 15:01 Temperature Pulse Rate 70 Respiratory Rate 15 Blood Pressure 166/72 H 218/84 H Pulse Oximetry 96 Oxygen Delivery Method Oxygen Flow Rate 09/11/22 15:01 09/11/22 15:30 09/11/22 15:31 Temperature Pulse Rate 72 65 Respiratory Rate 18 13 Blood Pressure 199/79 H Pulse Oximetry 96 96 Oxygen Delivery Method Oxygen Flow Rate 09/11/22 15:31 09/11/22 16:32 09/11/22 16:15 Temperature 97.7 F Pulse Rate 67 72 Respiratory Rate 16 20 Blood Pressure 193/58 H Pulse Oximetry 95 97 97 Oxygen Delivery Method Room Air Oxygen Flow Rate 0 09/11/22 16:32 Temperature 97.7 F Pulse Rate 72 Respiratory Rate 16 Blood Pressure 193/58 H Pulse Oximetry 95 Oxygen Delivery Method Oxygen Flow Rate 0 Oxygen Delivery Method Room Air Oxygen Flow Rate 0 Narrative Exam Narrative: General:? Patient is well developed and well nourished, in no distress at this time. HEENT:? Normocephalic, atraumatic, extraocular muscles intact, oral pharynx is clear and mucous membranes are moist. Neck: supple and symmetric, trachea is midline, no cervical adenopathy. Negative for JVD Chest:? Normal AP diameter and contour without kyphoscoliosis, no tachypnea, equal chest rise bilaterally. Lungs:? CTA b/l no wheezing rhonchi or rales. Cardio:?RRR no m/r/g. Abdomen: soft, non-distended, tender in the RLQ and epigastrium Musculoskeletal:? Muscle strength and tone are equal within normal limits, no deformity. Extremities: No edema or joint effusions. No cyanosis or clubbing. Skin:? Pale,? Warm to touch,dry and intact without rashes, ulcerations or petechiae.? Neuro:? Alert and orientated x3,? sensation to touch intact in all extremities, no gross deficits noted of cranial nerves. Psych:? Patient has a well-kept appearance, appropriate affect, mental status attitude thought context and judgment are appropriate for age. Objective ECG Impression: Sinus rhythm with 1st degree AV block Left axis deviation Left ventricular hypertrophy with repolarization abnormality ( R in aVL , [place] product , Romhilt-Mccarthy ) Inferior infarct , age undetermined Anteroseptal infarct , age undetermined similar to prior tracing Labs 09/11/22 08:24 09/11/22 08:24 Labs: Laboratory Results - last 24 hr 09/11/22 09/11/22 09/11/22 08:15 08:24 08:24 WBC 7.8 RBC 4.83 Hgb 14.0 Hct 42.9 MCV 88.8 MCH 29.1 MCHC 32.8 RDW 14.3 Plt Count 160 Neut % (Auto) 68.3 Lymph % (Auto) 13.9 L [place] % (Auto) 14.3 H Eos % (Auto) 2.4 Baso % (Auto) 1.1 Neut # (Auto) 5300 Lymph # (Auto) 1100 [place] # (Auto) 1100 H Eos # (Auto) 200 Baso # (Auto) 100 PT 14.8 H INR 1.3 APTT 35 Sodium Potassium Chloride Carbon Dioxide BUN Creatinine Estimated GFR BUN/Creatinine Ratio Glucose Lactate Calcium Magnesium Total Bilirubin AST ALT Alkaline Phosphatase Total Creatine Kinase CK-MB (CK-2) CK-MB (CK-2) Rel Index Troponin I Total Protein Albumin Globulin Albumin/Globulin Ratio Lipase Urine RBC None seen Urine WBC 1-5/hpf Ur Squamous Epith Cells 0-1 /hpf Urine Bacteria None seen Ur Culture Indicated? Cult not indicated 09/11/22 09/11/22 09/11/22 08:24 08:24 10:42 WBC RBC Hgb Hct MCV MCH MCHC RDW Plt Count Neut % (Auto) Lymph % (Auto) [place] % (Auto) Eos % (Auto) Baso % (Auto) Neut # (Auto) Lymph # (Auto) [place] # (Auto) Eos # (Auto) Baso # (Auto) PT INR APTT Sodium 138 Potassium 3.7 Chloride 103 Carbon Dioxide 26 BUN 15 Creatinine 0.63 Estimated GFR > 60 BUN/Creatinine Ratio 23.8 H Glucose 146 H Lactate 1.1 Calcium 9.3 Magnesium 1.9 Total Bilirubin 1.6 H AST 70 H ALT 47 H Alkaline Phosphatase 93 Total Creatine Kinase 35 CK-MB (CK-2) TNP CK-MB (CK-2) Rel Index TNP Troponin I < 0.012 < 0.012 Total Protein 7.0 Albumin 3.9 Globulin 3.1 Albumin/Globulin Ratio 1.3 Lipase 54 Urine RBC Urine WBC Ur Squamous Epith Cells Urine Bacteria Ur Culture Indicated? 09/11/22 16:55 WBC RBC Hgb Hct MCV MCH MCHC RDW Plt Count Neut % (Auto) Lymph % (Auto) [place] % (Auto) Eos % (Auto) Baso % (Auto) Neut # (Auto) Lymph # (Auto) [place] # (Auto) Eos # (Auto) Baso # (Auto) PT INR APTT Sodium Potassium Chloride Carbon Dioxide BUN Creatinine Estimated GFR BUN/Creatinine Ratio Glucose Lactate Calcium Magnesium Total Bilirubin AST ALT Alkaline Phosphatase Total Creatine Kinase CK-MB (CK-2) CK-MB (CK-2) Rel Index Troponin I < 0.012 Total Protein Albumin Globulin Albumin/Globulin Ratio Lipase Urine RBC Urine WBC Ur Squamous Epith Cells Urine Bacteria Ur Culture Indicated? Assessment & Plan Assessment & Plan narrative: 1. Chest / abdominal pain - possible atypical chest pain / ACS presentation, also possible GERD or abdominal source but CT abdomen was unremarkable and patient has prior cholecystectomy. Less likely due to hypertension, believe hypertension is more reactive at this time. - continue oral PPI - stress test, echo ordered for tomorrow - troponin negative x2, no further trending necessary unless symptom recurrence. - trend bili and transaminase levels. 2. Hypertensive urgency -continue home medications, increase amlodipine from 2.5 to 5 mg. continue losartan 100 mg. -nitro paste placed in the ER as well. 3. paroxysmal atrial fibrillation with PPM placement. - will monitor on tele - EKG sinus with 1st degree block - continue home apixaban, on 2.5 mg BID for diffuse bleeding. 4. hypothyroidism and hyperparathyroidism - continue home levothyroxine, calcium is normal Code: DNR, surrogate is Nadine DVT: on apixaban I have utilized all available immediate resources to obtain, update, or review the patient's current medications. Dispo: admit observation, possible discharge home tomorrow depending on symptoms and stress test results. Patient's outpatient records were reviewed, along with laboratory and radiographic studies which are discussed above. additional history obtained via the ER provider. COVID-19 COVID-19 status: Negative Time Spent With Patient Critical Care time: I spent a total of [] minutes of critical care time on this patient's care today; this time is exclusive of procedural time. Quality VTE Deep Vein Thrombosis/Pulmonary Embolism Present on Admission: No MIPS - Admit I confirm the patient?s Advance Care Plan is present, Code status is documented, Surrogate decision maker is in patient?s record [If Yes, STOP here]: Yes
[2022-09-11] MEDS: AMLODIPINE 5 MG TABLET 2.5 MG PO (18:25)
[2022-09-11] MEDS: LORazepam 0.5 MG TABLET PO (20:29)
[2022-09-11] MEDS: APIXABAN 5 MG TABLET 2.5 MG PO (20:29)
[2022-09-11] MEDS: ACETAMINOPHEN 325 MG TABLET 650 MG PO (20:30)
[2022-09-11] MEDS: SIMETHICONE 80 MG TABLET PO (20:31)
[2022-09-11] MEDS: MAG HYDROX/ALUMINUM/SIMETH SUS 20 ML, LIDOCAINE VISCOUS 2% 15 ML PO (20:31)
[2022-09-12 01:08] LABS: COVID-19 CEPHEID 4-PLEX PCR Negative (Negative); Influenza A - CEPHEID Flu A NEGATIVE (NEGATIVE); Influenza B - CEPHEID Flu B NEGATIVE (NEGATIVE); Respiratory Syncytial Virus Negative (Negative)
[2022-09-12 02:00] VITALS: BP 165/57; PULSE 78; RESP 19; TEMP 37.7; O2SAT 93
[2022-09-12 05:57] LABS: Add Manual Diff / Slide Review NO; Basophils Absolute Auto 0 /uL (0-100); Basophils Percent Auto 0.3 % (0-2); Eosinophils Absolute Auto 0 /uL (0-450); Eosinophils Percent Auto 0.2 % (2-4); Hematocrit 40.5 % (36-46); Hemoglobin 13.4 g/dL (12.0-16.0); Lymphocytes Absolute Auto 500 /uL (1100-4500); Lymphocytes Percent Auto 4.4 % (25-40); Mean Corpuscular HGB Conc 33.1 % (30-36); Mean Corpuscular Hemoglobin 29.1 PG (26-34); Monocytes Absolute Auto 1900 /uL (0-900); Monocytes Percent Auto 17.4 % (3-14); Neutrophils Absolute Auto 8700 /uL (1500-7000); Neutrophils Percent Auto 77.7 % (50-75); Platelet Count 147 X10^3/uL (150-400); Red Cell Distribution Width 14.4 % (11.6-14.8); White Blood Cell Count 11.2 X10^3/uL (4.5-11.0)
[2022-09-12 06:00] VITALS: BP 172/60; PULSE 68; RESP 20; TEMP 37; O2SAT 94
[2022-09-12 06:06] LABS: BUN Creatinine Ratio 22.1 (6-22); Blood Urea Nitrogen 15 mg/dL (7-17); Calcium 8.9 mg/dL (8.4-10.2); Carbon Dioxide 26 mmol/L (22-32); Chloride 104 mmol/L (98-107); Estimated Glomerular Filt Rate > 60 mL/min (>60); Glucose 153 mg/dL (80-110); HEMOLYSIS < 15 (0-50); Magnesium 1.9 mg/dL (1.6-2.3); Potassium 3.9 mmol/L (3.4-5.1); Sodium 134 mmol/L (137-145)
[2022-09-12] MEDS: PANTOPRAZOLE DR 40 MG TABLET PO (06:08)
[2022-09-12] MEDS: LEVOTHYROXINE 50 MCG TABLET PO (06:08)
[2022-09-12 08:39] VITALS: BP 186/63; PULSE 74; RESP 18; TEMP 36.9; O2SAT 95
[2022-09-12] MEDS: LOSARTAN 50 MG TABLET 100 MG PO (09:35)
[2022-09-12] MEDS: APIXABAN 5 MG TABLET 2.5 MG PO (09:35)
[2022-09-12] MEDS: AMLODIPINE 5 MG TABLET PO (09:37)
[2022-09-12 12:00] VITALS: O2SAT 95
[2022-09-12 13:19] VITALS: BP 176/66; PULSE 74; RESP 16; TEMP 36.2; O2SAT 95
--- NOTE | 2022-09-12 13:21 | PM.DS.1 ---
History of Present Illness History of Present Illness Date Patient Seen: 09/12/22 Time Patient Seen: 13:21 Chief complaint: Chest pain, paced Narrative: This is an 82 year old female with PMH of CAD, afib with PPM, hyperparathyroidism, HTN, hypothyroid, pancreatic insufficiency on pancreatic enzymes? who presents with 2 episodes of adbominal pain. First happened monday, it felt band like about 30 minutes after a meal, was associated with weakness, fatigue, diaphoresis, and dizziness. The pain was burning in nature, radiated into her chest and left arm as well as her back. She also had a couple of loose stools. Eventually she had a large burp, with improvement in her pain. She had recurrence of this pain early this morning and came in to the ER for further evaluation. She does not have a gallbladder. She denies palpitations, dysuria or urinary frequency. She denies fever or chills. She denies recent illness. In the emergency room, patient was markedly hypertensive, but the remainder of her vitals were unremarkable. EKG showed sinus rhythm with 1st degree AV block. CXR and CTA chest abdomen pelvis was unremarkable. Lab evaluation was unremarkable except for mild elevations in AST/ALT and tbili. Lipase was normal. Troponin was negative. She was admitted for further evaluation of her pain with some concern for atypical presentation of chest pain. Discharge Providers Provider Date of admission: 09/11/22 15:08 Discharge Date: 09/12/22 Primary care physician: Mona Clinton MD Discharge provider: Lee Lord DO Summary Hospital Course Discharge Diagnosis: 1. Chest / abdominal pain 2. Hypertensive urgency 3. paroxysmal atrial fibrillation with PPM placement. 4. hypothyroidism and hyperparathyroidism Hospital Course: This is an 82-year-old female with a past medical history of CAD, hypertension, atrial fibrillation and tachy-timbo syndrome with pacemaker placement, hypothyroidism, hyperparathyroidism who was admitted with an episode of abdominal discomfort. Given her prior history of atypical chest pain she was admitted for further observation, as well as for marked hypertension. Her blood pressure improved with resumption of her home medications, though it still remained elevated on discharge. Her home amlodipine was increased from 2.5-5 mg daily and further titration is recommended with her primary care provider in the next couple of weeks. She underwent nuclear stress testing which was deemed a low risk study by Cardiology. Other than an increase in her amlodipine, pantoprazole was recommended, along with simethicone which seemed to help her symptoms here. Should symptoms continue, I recommend follow-up with her primary care provider for consideration of a possible EGD or other diagnostic evaluations. She had no current red flag symptoms including weight loss or anemia and CT angiogram of her chest/abdomen/pelvis was performed in the ER which showed no acute pathologies or concerning findings. Time Spent with Patient Time spent: Greater than 30 minutes Exam Vital Signs (past 8 hours): - 09/12/22 06:00 09/12/22 08:39 09/12/22 08:00 Temperature 98.6 F 98.4 F Pulse Rate 68 74 Respiratory Rate 20 18 Blood Pressure 172/60 H 186/63 H Pulse Oximetry 94 95 Oxygen Delivery Method Room Air Oxygen Flow Rate 0 0 95 09/12/22 12:00 Temperature Pulse Rate Respiratory Rate Blood Pressure Pulse Oximetry 95 Oxygen Delivery Method Room Air Oxygen Flow Rate 0 Oxygen Delivery Method Room Air Oxygen Flow Rate 0 Narrative Exam Narrative: General:? Patient is well developed and well nourished, in no distress at this time. HEENT:? Normocephalic, atraumatic, extraocular muscles intact, oral pharynx is clear and mucous membranes are moist. Neck: supple and symmetric, trachea is midline, no cervical adenopathy. Negative for JVD Chest:? Normal AP diameter and contour without kyphoscoliosis, no tachypnea, equal chest rise bilaterally. Lungs:? CTA b/l no wheezing rhonchi or rales. Cardio:?RRR no m/r/g. Abdomen: soft, non-distended, tender in the RLQ and epigastrium Musculoskeletal:? Muscle strength and tone are equal within normal limits, no deformity. Extremities: No edema or joint effusions. No cyanosis or clubbing. Skin:? Pale,? Warm to touch,dry and intact without rashes, ulcerations or petechiae.? Neuro:? Alert and orientated x3,? sensation to touch intact in all extremities, no gross deficits noted of cranial nerves. Psych:? Patient has a well-kept appearance, appropriate affect, mental status attitude thought context and judgment are appropriate for age. Objective Labs 09/12/22 05:40 09/12/22 05:40 Labs: Laboratory Results - last 24 hr 09/11/22 09/11/22 09/12/22 16:55 20:40 05:40 WBC 11.2 H RBC 4.60 Hgb 13.4 Hct 40.5 MCV 88.0 MCH 29.1 MCHC 33.1 RDW 14.4 Plt Count 147 L Neut % (Auto) 77.7 H Lymph % (Auto) 4.4 L [place] % (Auto) 17.4 H Eos % (Auto) 0.2 L Baso % (Auto) 0.3 Neut # (Auto) 8700 H Lymph # (Auto) 500 L [place] # (Auto) 1900 H Eos # (Auto) 0 Baso # (Auto) 0 Sodium Potassium Chloride Carbon Dioxide BUN Creatinine Estimated GFR BUN/Creatinine Ratio Glucose Calcium Magnesium Troponin I < 0.012 SARS-CoV-2 (PCR) Negative Influenza A (RT-PCR) Flu a negative Influenza B (RT-PCR) Flu b negative RSV (PCR) Negative 09/12/22 05:40 WBC RBC Hgb Hct MCV MCH MCHC RDW Plt Count Neut % (Auto) Lymph % (Auto) [place] % (Auto) Eos % (Auto) Baso % (Auto) Neut # (Auto) Lymph # (Auto) [place] # (Auto) Eos # (Auto) Baso # (Auto) Sodium 134 L Potassium 3.9 Chloride 104 Carbon Dioxide 26 BUN 15 Creatinine 0.68 Estimated GFR > 60 BUN/Creatinine Ratio 22.1 H Glucose 153 H Calcium 8.9 Magnesium 1.9 Troponin I SARS-CoV-2 (PCR) Influenza A (RT-PCR) Influenza B (RT-PCR) RSV (PCR) PFSH Medical History History of asthma History of heart attack History of hypothyroidism History of nephrolithiasis History of UTI Hx of cardiac pacemaker Hx of coronary artery disease Hx of essential hypertension Hx of gastroesophageal reflux (GERD) Hx of ovarian cancer Postmenopausal atrophic vaginitis Surgical History History of coronary artery stent placement History of liver biopsy Hx of abdominal hysterectomy Hx of appendectomy Hx of section Hx of cholecystectomy Hx of pelvic surgery Hx of tubal ligation Family History Mother CVA (cerebral vascular accident) FH: heart attack Migraine Social History household members: none Smoking Status: Former smoker Tobacco: How many years used: 9 alcohol intake: never caffeine: No Type(s) of exercise: other frequency: 1-2 times per week Discharge Plan Discharge Plan Patient Disposition: Home Provider Discharge Comment: You were admitted to the hospital with abdominal pain and chest discomfort. Start PPI trial for 2 weeks, continue simethicone (OTC) at home as well. Nursing Discharge Comment: return to ER/call 911 if the symptoms that brought you here return. things to monitor for: shortness of breath, pain that changes w/ exertion. it is a good idea to monitor your b/p and pulse twice daily for 1-2 weeks starting tonight- and write them down. bring that log to your next doctor appt. medications as ordered. any questions please call your primary MD or pharmacist. the doctor you saw while here changed your amlodipine to 5mg daily instead of the 2.5mg. it was a pleasure to be your nurse and i hope you enjoy your evening. Discharge orders & Medications Prescriptions: New amlodipine [Norvasc] 5 mg Tablet 5 mg PO DAILY 30 Days Qty: 30 0RF pantoprazole 40 mg Tablet,Delayed Release (Dr/Ec) 40 mg PO 0700 14 Days Qty: 14 0RF Continued Eliquis 2.5 mg tablet 2.5 mg PO BID losartan 100 mg tablet 100 mg PO DAILY levothyroxine 50 mcg capsule 50 mcg PO DAILY estradiol 1 dose vaginal 4XW Rx Instructions: m,w,f,diaz Discontinued amlodipine 2.5 mg tablet 2.5 mg PO DAILY Follow up/Referrals: Mona Clinton MD [Primary Care Provider] - Diet/Activity/Treatments Diet: Diet as Tolerated Activity: As tolerated Visit Report/Discharge Packet Stand Alone Forms: Patient Portal/API, Stroke Signs & Symptoms Discharge Data Primary Care Provider: Mona Clinton Attending Provider: Lee Lord VTE Deep Vein Thrombosis/Pulmonary Embolism Present on Admission: No
--- NOTE | 2022-09-12 14:31 | PC.NURSE ---
returned from stress test, requested hot tea / caffeine. this was provided. denies cp/discomfort. dc orders received. see d/c summary.
--- NOTE | 2022-09-12 19:55 | DI.NM.S_ITS ---
DATE OF SERVICE: 09/12/2022 PROCEDURE: Pharmacological perfusion study. INDICATION: Chest pain, CAD, hypertension, hyperlipidemia, PPM, paroxysmal AFib. RADIOPHARMACEUTICAL: 25.6 millicurie technetium-99m Myoview IV was injected at stress and 10.0 millicurie technetium-99m Myoview IV was injected at rest. CARDIAC STRESS: The patient underwent IV Lexiscan perfusion study under the supervision of an attending staff using standard intravenous Lexiscan, as per protocol. The patient remained hemodynamically stable. Resting blood pressure was 160/80. Heart rate 66. Rhythm was sinus. During stress, no convincing ischemic changes seen. No new significant arrhythmias seen. The patient felt mild shortness of breath and nausea with Lexiscan. No chest pain. RAW DATA: Breast shadow was seen. Increased subdiaphragmatic activity. GATED STUDY: Resting LV ejection fraction 74 percent and stress LV ejection fraction 80 percent without any obvious wall motion abnormalities. Resting end- diastolic volume 96 mL. TID ratio 0.89, which is within normal limits. Lung/heart ratio 0.42, which is within normal limits. MYOCARDIAL PERFUSION SCAN: Please note, that there are no stress prone images. Resting supine and stress supine images were compared to each other. Resting supine images revealed moderate-size, mild to moderately decreased perfusion of base to mid anterior wall, as well as basal inferior wall. However, stress supine images revealed only minimally decreased perfusion of mid anterior wall. No significant anterior wall or basal inferior wall defect seen. The patient does not have any prone images. CONCLUSION: I will call this study likely a normal myocardial perfusion study with evidence of breast tissue attenuation artifact. Resting supine images appear worse than stress supine images. No reversible ischemia. The patient has minimally decreased perfusion of mid anterior wall of the stress supine images. It was seen during perfusion study of February,, and at that time there was improvement with prone images. Preserved left ventricular function. No wall motion abnormalities. Breast shadow seen on raw images. Hence, most likely we are dealing with breast tissue attenuation artifact. Left ventricular function is preserved. Overall, low-risk myocardial perfusion scan. Yoselin Sanders - Marshal/della doc#: [id number]/job#: [id number] dd: 09/12/2022 12:55:00 dt: 09/12/2022 19:48:00 DICTATING MD/COPIES TO: Fernie Stevens MD COPIES MNE: ZECHARIAH;
== END 2022-09-12 16:00 | disposition home or self-care (01) ==
LOC: ED 15:08 → AC 15:09
PROVIDERS: Nurse Practitioner Family; Admitting Provider Internal Medicine; Emergency Provider Emergency Medicine; PCP Family Medicine; Referring Provider Emergency Medicine; Visit Provider Internal Medicine
DX: R07.9 Chest pain, unspecified (principal); R10.9 Unspecified abdominal pain; I16.0 Hypertensive urgency; I25.10 Atherosclerotic heart disease of native coronary artery without angina pectoris; I10 Essential (primary) hypertension; I48.0 Paroxysmal atrial fibrillation; E03.9 Hypothyroidism, unspecified; E21.3 Hyperparathyroidism, unspecified; Z95.0 Presence of cardiac pacemaker; Z95.818 Presence of other cardiac implants and grafts; Z20.822 Contact with and (suspected) exposure to COVID-19
CPT/HCPCS: 0241U; 36415; 71045; 71275; 74174; 78452; 80048; 80053; 81003; 81015; 82550; 83605; 83690; 83735; 84484; 85025; 85610; 85730; 87086; 93005; 93010; 93017; 93306; 96374; 96375; 99285; G0378; A9502; C9113; J2405; J2785; Q9967

== ENCOUNTER → 2023-12-07 10:04 | Outpatient (CLI) | payer MEDICARE, OTHER, SELFPAY ==
[2022-09-11 15:27] VITALS: BMI 31.7
--- NOTE | 2023-12-07 10:07 | DI.NM.S_ITS ---
PROCEDURE: NM AYLEEN PERF SPECT R&S PHARM Rest and pharmacological stress myocardial perfusion SPECT with gated imaging and ejection fraction RADIOPHARMACEUTICAL: 12.8 mCi Tc-99m tetrafosmin IV at rest and 25.4 mCi Tc-99m tetrafosmin IV at peak effect of pharmacological stress. [id number] was performed. INDICATIONS: ELEVATED TROPONIN/CAD TECHNIQUE: Radiopharmaceutical was injected at peak stress test, and also at rest. SPECT images were obtained. SPECT myocardial perfusion images were displayed in short axis, horizontal long axis, and vertical long axis views. Gated images were reviewed using [employer] software. COMPARISON: None. CARDIAC STRESS: A pharmacologic stress test was performed under the supervision of an attending staff, using an infusion of lexiscan 0.4mg IV X1. Hemodynamic data: There is normal blood pressure and heart rate response to pharmacologic stress. Symptoms: The patient had non-diagnostic chest pain with lexiscan. Aminophylline: none EKG: No diagnostic changes of ischemia; frequent PVCs present. FINDINGS: Raw data: There is good myocardial uptake of radiotracer. No significant motion artifacts. Tvwq-[id number] ratio is 0.29 (normal is less than 0.38 for tetrafosmin tracer). Left ventricle function: Gated images demonstrate normal left ventricular wall thickening. No segmental wall motion abnormalities. No transient ischemic dilation; TID is 0.93 (normal less than 1.3). Left ventricle resting end diastolic volume is 86 mL. Left ventricle stress ejection fraction is 72%; normal range is above 45%. Myocardial perfusion: There is a moderately intense basal to mid inferior wall defect at rest that worsens mildly with stress and improves significantly with prone imaging, suggesting diaphragmatic attenuation artifact but old non-transmural infarction can't be excluded. No significant ischemia. IMPRESSION: Low risk, probably normal pharm nuclear stress test from inducible ischemia standpoint. 1) There is a moderately intense basal to mid inferior wall defect at rest that worsens mildly with stress and improves significantly with prone imaging, suggesting diaphragmatic attenuation artifact but old non-transmural infarction can't be excluded. No significant ischemia. 2) Normal left ventricular size, wall motion, and systolic function (EF post stress 72%). 3) No diagnostic ST changes with lexiscan. Frequent PVCs during the study. 4) Non-diagnostic chest pain with lexiscan. 5) Compared to the nuclear stress test 09/12/2022, no significant change in perfusion images. Dictated by: Navid Gordon MD on 12/07/2023 at 16:52 Approved by: Navid Gordon MD on 12/07/2023 at 16:56
== END ==
PROVIDERS: PCP Internal Medicine; Referring Provider Internal Medicine Cardiovascular Disease; Visit Provider Internal Medicine Cardiovascular Disease
DX: R79.89 Other specified abnormal findings of blood chemistry (principal); I25.10 Atherosclerotic heart disease of native coronary artery without angina pectoris
CPT/HCPCS: 78452; 93017; A9502; J2785